=== PATIENT | male | born 1965 | race Hispanic/Latino ===

== ENCOUNTER 2017-06-29 19:33 | Emergency (ER) | payer BC ==
[~2017-06-29] VITALS: Ht 160 cm; Wt 85.6 kg
[~2017-06-29 19:33] MED LIST: (None)3.5 GM OP; ADVIL200 MG PO; FLEXERIL OR; GENTAMICIN15 ML/BTL OP; MEDDOSEPAK PO; NAPROSYN500 MG PO; NEXIUM20 MG PO; NO HOME MEDS; PERCOCET 5/325M1 TAB OR; TYLENOL325 MG PO; ULTRAM50 M1 PO
[2017-06-29] MEDS ORDERED: STERAPRED DS10 MG PO (21:39)
[2017-06-29 21:50] VITALS: BP 141/87
== END 2017-06-29 21:59 | disposition home or self-care (01) | DRG 918 ==
LOC: ED 19:33
DX: T63.461A Toxic effect of venom of wasps, accidental (unintentional), initial encounter (principal); I10 Essential (primary) hypertension; Y92.009 Unspecified place in unspecified non-institutional (private) residence as the place of occurrence of the external cause

== ENCOUNTER 2018-07-16 10:33 | Day surgery (SDC) | payer BC ==
[~2018-07-16] VITALS: Ht 160 cm; Wt 82.6 kg
[~2018-07-16 10:33] MED LIST changes: +OMEPRAZOLE20 M2 PO; +STERAPRED DS10 MG PO
[2018-07-16 15:18] VITALS: BP 106/64
== END 2018-07-16 15:29 | disposition home or self-care (01) | DRG 951 ==
LOC: ENDO 10:33
PROVIDERS: ATTEND Internal Medicine Gastroenterology
PROC: 0DBK8ZX Excision of Ascending Colon, Via Natural or Artificial Opening Endoscopic, Diagnostic (ICD-10-PCS; principal; 2018-07-16)
PROC: 0DBL8ZX Excision of Transverse Colon, Via Natural or Artificial Opening Endoscopic, Diagnostic (ICD-10-PCS; 2018-07-16)
PROC: 0DBN8ZX Excision of Sigmoid Colon, Via Natural or Artificial Opening Endoscopic, Diagnostic (ICD-10-PCS; 2018-07-16)
PROC: 0DBP8ZX Excision of Rectum, Via Natural or Artificial Opening Endoscopic, Diagnostic (ICD-10-PCS; 2018-07-16)
PROC: 0DBH8ZX Excision of Cecum, Via Natural or Artificial Opening Endoscopic, Diagnostic (ICD-10-PCS; 2018-07-16)
DX: Z12.11 Encounter for screening for malignant neoplasm of colon (principal); D12.2 Benign neoplasm of ascending colon; D12.5 Benign neoplasm of sigmoid colon; D12.8 Benign neoplasm of rectum; K63.5 Polyp of colon; K64.4 Residual hemorrhoidal skin tags; K57.30 Diverticulosis of large intestine without perforation or abscess without bleeding; K64.8 Other hemorrhoids; K21.9 Gastro-esophageal reflux disease without esophagitis; Z79.899 Other long term (current) drug therapy

== ENCOUNTER 2018-08-20 06:40 | Day surgery (SDC) | payer BC ==
[~2018-08-20] VITALS: Ht 160 cm; Wt 88.5 kg
[2018-08-20 09:13] VITALS: BP 119/74
== END 2018-08-20 09:53 | disposition home or self-care (01) | DRG 392 ==
LOC: ENDO 06:40 → ORM 06:40 → ENDO 09:53 → ORM 14:30
PROVIDERS: ATTEND Internal Medicine Gastroenterology
PROC: 0DB48ZX Excision of Esophagogastric Junction, Via Natural or Artificial Opening Endoscopic, Diagnostic (ICD-10-PCS; principal; 2018-08-20)
PROC: 0DB78ZX Excision of Stomach, Pylorus, Via Natural or Artificial Opening Endoscopic, Diagnostic (ICD-10-PCS; 2018-08-20)
DX: K21.9 Gastro-esophageal reflux disease without esophagitis (principal); K29.70 Gastritis, unspecified, without bleeding; K57.30 Diverticulosis of large intestine without perforation or abscess without bleeding; Z86.010 Personal history of colon polyps; Z79.899 Other long term (current) drug therapy

== ENCOUNTER 2020-01-09 | Emergency (ER) | payer BC ==
[2020-01-09 14:49] LABS: HEMATOCRIT 46.5 % (39.0-50.0); HEMOGLOBIN 15.5 g/dl (14.0-18.0); IMMATURE GRANULOCYTES 0.5 % (0.0-5.0); MEAN CORPUSCULAR HGB 30.3 pG CALC (26.0-32.0); MEAN CORPUSCULAR HGB CONC 33.3 g/L CALC (32.0-36.0); NEUT# 11.48 thou/uL (1.82-7.42); RED BLOOD COUNT 5.11 mill/uL (4.70-6.10); RED CELL DISTRI WIDTH 13.5 % (11.5-15.5)
[2020-01-09 15:10] LABS: ALBUMIN 4.3 g/dL (3.2-5.0); ALKALINE PHOSPHATASE 91 u/l (38-126); ANION GAP 13 (6-22 (CALC)); BUN 12 mg/dL (9-20); BUN/CREATININE RATIO 16 (12-20 (CALC)); CARBON DIOXIDE 27 mmol/l (22-30); CHLORIDE 101 mmol/l (95-108); CREATININE 0.8 mg/dL (0.7-1.3); GFR > 60 ML/MIN (>=60 (CALC)); GFR FOR AFR.AMER. > 60 ML/MIN (>=60 (CALC)); LIPASE 25 u/l (23-300); SGOT/AST 23 u/l (17-59); SODIUM 136 mmol/l (137-146); TOTAL PROTEIN 7.5 g/dL (6.3-8.2)
[2020-01-09 15:11] LABS: BILIRUBIN, TOTAL 1.5 mg/dL (0.0-1.4)
[2020-01-09 15:29] LABS: URINE BILIRUBIN - DIPSTICK NEGATIVE (NEGATIVE); URINE BLOOD DIPSTICK MODERATE (NEGATIVE); URINE GLUCOSE - DIPSTICK NEGATIVE (NEGATIVE); URINE KETONE NEGATIVE (NEGATIVE); URINE NITRITE - DIPSTICK NEGATIVE (Negative); URINE PROTEIN - DIPSTICK 30 mg/dL (NEG-TRACE); URINE SPECIFIC GRAVITY 1.025
[2020-01-09 15:41] LABS: URINE COLOR DK. YELLOW; URINE LEUK ESTERASE MODERATE (NEGATIVE)
[2020-01-09 15:50] LABS: URINE WBC 50-100 WBC/hpf (0-5)
[2020-01-09] MEDS ORDERED: OMNI-PAC300 MG PO (15:54)
[2020-01-09] MEDS ORDERED: ONDANSETRON4 MG PO (15:54)
== END 2020-01-09 16:25 | disposition home or self-care (01) | DRG 690 ==
PROVIDERS: Family Medicine
DX: N12 Tubulo-interstitial nephritis, not specified as acute or chronic (principal); B96.20 Unspecified Escherichia coli [E. coli] as the cause of diseases classified elsewhere; I10 Essential (primary) hypertension
CPT/HCPCS: Q9967

== ENCOUNTER 2021-09-11 09:28 | Emergency (ER) | payer BC ==
[~2021-09-11] VITALS: Ht 160 cm; Wt 84.1 kg
[~2021-09-11 09:28] MED LIST changes: +OMNI-PAC300 MG PO; +ONDANSETRON4 MG PO
[2021-09-11] MEDS ORDERED: [UNRECOGNIZED DRUG - OTHER] PO (10:08)
[2021-09-11] MEDS ORDERED: FINASTERIDE5 MG PO (10:08)
[2021-09-11] MEDS ORDERED: COZAAR25 MG PO (10:08)
[2021-09-11] MEDS ORDERED: TAMSULOSIN HCL0.4 MG PO (10:08)
[2021-09-11 10:52] LABS: HEMATOCRIT 42.7 % (39.0-50.0); HEMOGLOBIN 14.3 g/dl (14.0-18.0); IMMATURE GRANULOCYTES 1.1 % (0.0-5.0); MEAN CELL VOLUME 93.8 fL CALC (80.0-100.0); MEAN CORPUSCULAR HGB 31.4 pG CALC (26.0-32.0); MEAN CORPUSCULAR HGB CONC 33.5 g/dL CAL (32.0-36.0); NEUT# 2.83 thou/uL (1.82-7.42); RED BLOOD COUNT 4.55 mill/uL (4.70-6.10); RED CELL DISTRI WIDTH 13.2 % (11.5-15.5)
[2021-09-11 11:07] LABS: ALBUMIN 3.9 g/dL (3.2-5.0); ALKALINE PHOSPHATASE 95 u/l (38-126); ANION GAP 9 (6-22 (CALC)); BUN 12 mg/dL (9-20); BUN/CREATININE RATIO 18 (12-20 (CALC)); CARBON DIOXIDE 27 mmol/l (22-30); CHLORIDE 105 mmol/l (95-108); CREATININE 0.7 mg/dL (0.7-1.3); D-DIMER 0.19 mg/L (0.19-0.60); GFR > 60 ML/MIN (>=60 (CALC)); GFR FOR AFR.AMER. > 60 ML/MIN (>=60 (CALC)); LIPASE 64 u/l (23-300); POTASSIUM 4.3 mmol/l (3.5-5.1); SGOT/AST 30 u/l (17-59); SODIUM 137 mmol/l (137-146); TOTAL PROTEIN 6.9 g/dL (6.3-8.2)
[2021-09-11 11:10] LABS: BILIRUBIN, TOTAL 0.5 mg/dL (0.0-1.4)
[2021-09-11 11:12] LABS: URINE BILIRUBIN - DIPSTICK NEGATIVE (NEGATIVE); URINE BLOOD DIPSTICK NEGATIVE (NEGATIVE); URINE COLOR YELLOW; URINE GLUCOSE - DIPSTICK NEGATIVE (NEGATIVE); URINE KETONE NEGATIVE (NEGATIVE); URINE LEUK ESTERASE NEGATIVE (NEGATIVE); URINE PH 5.5 (4.5-8.0); URINE PROTEIN - DIPSTICK NEGATIVE (NEG-TRACE); URINE SPECIFIC GRAVITY >=1.030; URINE UROBILINOGEN - DIPSTICK 0.2 E.U./dL (0.2)
[2021-09-11 11:13] LABS: URINE NITRITE - DIPSTICK NEGATIVE (Negative)
[2021-09-11 11:30] LABS: ACT PARTIAL THROMBO TIME 24.3 SECONDS (20.0-32.5); PROTHROMBIN TIME 10.1 SECONDS (9.0-12.5)
[2021-09-11] MEDS ORDERED: ZPAK PO (12:36)
[2021-09-11 15:38] VITALS: BP 108/66
== END 2021-09-11 15:38 | disposition home or self-care (01) | DRG 195 ==
LOC: ED 09:28
DX: J18.9 Pneumonia, unspecified organism (principal); I10 Essential (primary) hypertension; Z20.822 Contact with and (suspected) exposure to COVID-19
CPT/HCPCS: Q9967

== ENCOUNTER 2022-01-10 02:04 | Emergency (ER) | payer BC ==
[~2022-01-10] VITALS: Ht 160 cm; Wt 86.0 kg
[~2022-01-10 02:04] MED LIST changes: +COZAAR25 MG PO; +FINASTERIDE5 MG PO; +TAMSULOSIN HCL0.4 MG PO; +ZPAK PO; +[UNRECOGNIZED DRUG - OTHER] PO
[2022-01-10 02:55] LABS: URINE BILIRUBIN - DIPSTICK NEGATIVE (NEGATIVE); URINE BLOOD DIPSTICK TRACE-INTACT (NEGATIVE); URINE COLOR YELLOW; URINE GLUCOSE - DIPSTICK NEGATIVE (NEGATIVE); URINE KETONE NEGATIVE (NEGATIVE); URINE LEUK ESTERASE NEGATIVE (NEGATIVE); URINE PROTEIN - DIPSTICK NEGATIVE (NEG-TRACE); URINE SPECIFIC GRAVITY >=1.030; URINE UROBILINOGEN - DIPSTICK 0.2 E.U./dL (0.2)
[2022-01-10 02:56] LABS: URINE NITRITE - DIPSTICK NEGATIVE (Negative)
[2022-01-10 02:56] LABS: HEMATOCRIT 42.4 % (39.0-50.0); HEMOGLOBIN 14.4 g/dl (14.0-18.0); IMMATURE GRANULOCYTES 0.5 % (0.0-5.0); MEAN CELL VOLUME 93.2 fL CALC (80.0-100.0); MEAN CORPUSCULAR HGB 31.6 pG CALC (26.0-32.0); NEUT# 2.5 thou/uL (1.82-7.42); RED BLOOD COUNT 4.55 mill/uL (4.70-6.10); RED CELL DISTRI WIDTH 13.5 % (11.5-15.5)
[2022-01-10 03:08] LABS: ALBUMIN 3.5 g/dL (3.2-5.0); ALKALINE PHOSPHATASE 87 u/l (38-126); AMYLASE 50 u/l (30-110); ANION GAP 11 (6-22 (CALC)); BILIRUBIN, TOTAL 0.5 mg/dL (0.0-1.4); BUN 13 mg/dL (9-20); BUN/CREATININE RATIO 23 (12-20 (CALC)); CARBON DIOXIDE 24 mmol/l (22-30); CHLORIDE 108 mmol/l (95-108); CREATININE 0.6 mg/dL (0.7-1.3); GFR > 60 ML/MIN (>=60 (CALC)); GFR FOR AFR.AMER. > 60 ML/MIN (>=60 (CALC)); LIPASE 61 u/l (23-300); POTASSIUM 3.7 mmol/l (3.5-5.1); SGOT/AST 26 u/l (17-59); SODIUM 139 mmol/l (137-146); TOTAL PROTEIN 6.3 g/dL (6.3-8.2)
[2022-01-10] MEDS ORDERED: NAPROXEN500 MG PO (04:46)
[2022-01-10 04:58] VITALS: BP 135/96
== END 2022-01-10 05:06 | disposition home or self-care (01) | DRG 392 ==
LOC: ED 02:04
PROVIDERS: Emergency Medicine
DX: K59.00 Constipation, unspecified (principal); M79.10 Myalgia, unspecified site; I10 Essential (primary) hypertension
CPT/HCPCS: Q9967

== ENCOUNTER 2023-05-21 04:21 | Emergency (ER) | payer BC ==
[~2023-05-21] VITALS: Ht 160 cm; Wt 87.0 kg
[~2023-05-21 04:21] MED LIST changes: +NAPROXEN500 MG PO
[2023-05-21 05:09] LABS: URINE BILIRUBIN - DIPSTICK NEGATIVE (NEGATIVE); URINE BLOOD DIPSTICK NEGATIVE (NEGATIVE); URINE CLARITY CLEAR; URINE COLOR YELLOW; URINE GLUCOSE - DIPSTICK 500 mg/dL (NEGATIVE); URINE KETONE NEGATIVE (NEGATIVE); URINE LEUK ESTERASE NEGATIVE (Negative); URINE NITRITE - DIPSTICK NEGATIVE (Negative); URINE PROTEIN - DIPSTICK NEGATIVE (NEG-TRACE); URINE UROBILINOGEN - DIPSTICK 0.2 E.U./dL (0.2)
[2023-05-21 05:13] LABS: BASO% 0.6 % (0-3); EOS% 0.4 % (0-8); HEMATOCRIT 45.1 % (39.0-50.0); IMMATURE GRANULOCYTES 0.8 % (0.0-5.0); LYMPH% 14.2 % (15-41); MEAN CELL VOLUME 92.2 fL CALC (80.0-100.0); MEAN CORPUSCULAR HGB 30.7 pG CALC (26.0-32.0); MEAN CORPUSCULAR HGB CONC 33.3 g/dL CAL (32.0-36.0); NEUT# 3.76 thou/uL (1.82-7.42); RED BLOOD COUNT 4.89 mill/uL (4.70-6.10)
[2023-05-21 05:25] LABS: ALKALINE PHOSPHATASE 83 u/l (38-126); ANION GAP 13 (6-22 (CALC)); BILIRUBIN, TOTAL 0.6 mg/dL (0.2-1.3); BUN 15 mg/dL (9-20); BUN/CREATININE RATIO 19 (12-20 (CALC)); CARBON DIOXIDE 25 mmol/l (22-30); CHLORIDE 103 mmol/l (95-108); CREATININE 0.8 mg/dL (0.7-1.3); GFR FOR AFR.AMER. > 60 ML/MIN (>=60 (CALC)); GFR OTHER RACES > 60 ML/MIN (>=60 (CALC)); LIPASE 55 u/l (23-300); POTASSIUM 4.3 mmol/l (3.5-5.1); SGOT/AST 34 u/l (17-59); SODIUM 137 mmol/l (137-146)
[2023-05-21 05:26] LABS: ALBUMIN 4.4 g/dL (3.2-5.0); TOTAL PROTEIN 7.6 g/dL (6.3-8.2)
[2023-05-21] MEDS ORDERED: MIRALAX17 GM PO (06:02)
[2023-05-21 06:55] VITALS: BP 138/91
== END 2023-05-21 06:55 | disposition home or self-care (01) | DRG 392 ==
LOC: ED 04:21
PROVIDERS: Family Medicine
DX: K59.00 Constipation, unspecified (principal); S39.012A Strain of muscle, fascia and tendon of lower back, initial encounter; M79.10 Myalgia, unspecified site; I10 Essential (primary) hypertension; X58.XXXA Exposure to other specified factors, initial encounter

== ENCOUNTER 2024-05-12 02:54 | Emergency (ER) | payer BC ==
[~2024-05-12] VITALS: Ht 160 cm; Wt 84.0 kg
[~2024-05-12 02:54] MED LIST changes: +MIRALAX17 GM PO
[2024-05-12] MEDS ORDERED: ONDANSETRON HCl 4 MG/2 ML SDV IV ONE (03:25)
[2024-05-12 03:52] LABS: BASO% 0.7 % (0-3); EOS% 2.8 % (0-8); HEMATOCRIT 44.3 % (39.0-50.0); HEMOGLOBIN 14.8 g/dl (14.0-18.0); IMMATURE GRANULOCYTES 0.3 % (0.0-5.0); LYMPH% 16.5 % (15-41); MEAN CELL VOLUME 92.9 fL CALC (80.0-100.0); MEAN CORPUSCULAR HGB CONC 33.4 g/dL CAL (32.0-36.0); MONO% 6.9 % (2-13); NEUT# 4.47 thou/uL (1.82-7.42); NEUT% 72.8 % (42-76); RED BLOOD COUNT 4.77 mill/uL (4.70-6.10); RED CELL DISTRI WIDTH 13.7 % (11.5-15.5)
[2024-05-12 04:00] LABS: ALBUMIN 4.4 g/dL (3.2-5.0); BILIRUBIN, TOTAL 0.4 mg/dL (0.2-1.3); CREATININE 1.3 mg/dL (0.7-1.3); POTASSIUM 3.9 mmol/l (3.5-5.1); TOTAL PROTEIN 7.4 g/dL (6.3-8.2)
[2024-05-12 04:01] LABS: URINE BILIRUBIN - DIPSTICK Negative (NEGATIVE); URINE BLOOD DIPSTICK Moderate (NEGATIVE); URINE GLUCOSE - DIPSTICK Negative (NEGATIVE); URINE KETONE Negative (NEGATIVE); URINE NITRITE - DIPSTICK Negative (Negative); URINE PROTEIN - DIPSTICK Negative (NEG-TRACE); URINE SPECIFIC GRAVITY >=1.030; URINE UROBILINOGEN - DIPSTICK 0.2 E.U./dL (0.2)
[2024-05-12 04:03] LABS: URINE COLOR Yellow
[2024-05-12 04:04] LABS: URINE LEUK ESTERASE Negative (NEGATIVE)
[2024-05-12 04:06] LABS: URINE BACTERIA MODERATE hpf; URINE EPITHELIAL CELLS FEW EPI/hpf (0-FEW); URINE RBC 25-50 RBC/hpf (0-5); URINE URIC ACID CRYSTALS MODERATE lpf
[2024-05-12] MEDS ORDERED: DULCOLAX10 MG RE (04:29)
[2024-05-12] MEDS ORDERED: ONDANSETRON4 MG PO (04:29)
[2024-05-12 05:00] VITALS: BP 127/79
== END 2024-05-12 05:00 | disposition home or self-care (01) | DRG 392 ==
LOC: ED 02:54
PROVIDERS: Family Medicine
DX: K59.00 Constipation, unspecified (principal); R11.10 Vomiting, unspecified; R31.9 Hematuria, unspecified; I10 Essential (primary) hypertension; E11.9 Type 2 diabetes mellitus without complications